=== PATIENT | female | born 1965 | race Caucasian/White ===

== ENCOUNTER → 2016-05-22 | Outpatient (CLI) | payer OTHER ==
[2016-05-22 10:22] LABS: ALT 51 U/L (9-52); AST 58 U/L (14-36); Alkaline Phosphatase 77 U/L (38-126); Anion Gap 12 mmol/L; Blood Urea Nitrogen 16 mg/dL (7-17); Calcium 9.2 mg/dL (8.4-10.2); Carbon Dioxide 26 mmol/L (22-30); Chloride 105 mmol/L (98-107); Cholesterol 157 mg/dL (<200); Glucose 122 mg/dL (74-99); HDL Cholesterol 52 mg/dL (40-60); Non-African American GFR(MDRD) >60 (>60 ml/min/1.73 sqM); Potassium 4.7 mmol/L (3.5-5.1); Sodium 143 mmol/L (137-145); Total Bilirubin 0.4 mg/dL (0.2-1.3); Total Protein 7.1 g/dL (6.3-8.2); Triglycerides 477 mg/dL (<150)
[2016-05-22 12:53] LABS: Hemoglobin A1C 6.7 % (4.2-6.1)
== END ==
LOC: LABWHC1 09:04
PROVIDERS: ATTEND Internal Medicine
DX: E78.5 Hyperlipidemia, unspecified (principal); E11.9 Type 2 diabetes mellitus without complications; I10 Essential (primary) hypertension
CPT/HCPCS: 36415; 80053; 80061; 83036

== ENCOUNTER → 2017-08-13 | Outpatient (CLI) | payer OTHER ==
[2017-08-13 10:32] LABS: HCT 42.9 % (34.0-46.0); HGB 14.2 gm/dL (11.4-16.0); MCH 31.8 pg (25.0-35.0); MCHC 33.1 g/dL (31.0-37.0); Mean Platelet Volume 6.5; Platelet Count 247 k/uL (150-450); RBC 4.47 m/uL (3.80-5.40); RDW 13.1 % (11.5-15.5); WBC 7.6 k/uL (3.8-10.6)
[2017-08-13 10:49] LABS: ALT 43 U/L (9-52); AST 44 U/L (14-36); Albumin 4.6 g/dL (3.5-5.0); Alkaline Phosphatase 76 U/L (38-126); Blood Urea Nitrogen 15 mg/dL (7-17); Calcium 9.6 mg/dL (8.4-10.2); Chloride 103 mmol/L (98-107); Cholesterol 254 mg/dL (<200); Glucose 127 mg/dL (74-99); HDL Cholesterol 48 mg/dL (40-60); Potassium 4.9 mmol/L (3.5-5.1); Sodium 142 mmol/L (137-145); Total Bilirubin 0.3 mg/dL (0.2-1.3); Total Protein 7.2 g/dL (6.3-8.2)
[2017-08-13 11:03] LABS: Anion Gap 13 mmol/L; Carbon Dioxide 26 mmol/L (22-30)
[2017-08-13 11:16] LABS: Triglycerides 962 mg/dL (<150)
[2017-08-13 18:49] LABS: Hemoglobin A1C 6.9 % (4.0-6.0)
== END | disposition home or self-care (01) ==
LOC: LABWHC1 09:44
PROVIDERS: ATTEND Internal Medicine
DX: E11.9 Type 2 diabetes mellitus without complications (principal); E78.5 Hyperlipidemia, unspecified; E03.9 Hypothyroidism, unspecified
CPT/HCPCS: 36415; 80053; 80061; 83036; 84443; 85027

== ENCOUNTER → 2019-03-21 | Outpatient (CLI) | payer OTHER ==
[2019-03-21 07:34] LABS: HCT 42.1 % (34.0-46.0); HGB 14.4 gm/dL (11.4-16.0); MCH 34.4 pg (25.0-35.0); MCHC 34.3 g/dL (31.0-37.0); MCV 100.1 fL (80.0-100.0); Mean Platelet Volume 7.2; Platelet Count 277 k/uL (150-450); RDW 12.5 % (11.5-15.5); WBC 6.7 k/uL (3.8-10.6)
[2019-03-21 11:30] LABS: Hemoglobin A1C 7.2 % (4.0-6.0)
[2019-03-21 11:38] LABS: African American GFR (CKD) 95.5 (60.0-200.0); Albumin 4.8 g/dL (3.80-4.90); Albumin/Globulin Ratio 2.53 (1.60-3.17); Anion Gap 11.6 mmol/L (4.00-12.00); BUN/Creat Ratio 18.75 Ratio (12.00-20.00); Carbon Dioxide 25.4 mmol/L (21.6-31.8); Chol/HDL Ratio 4.71; Globulin 1.9 g/dL (1.6-3.3); Non-African American GFR(CKD) 82.4 (60.0-200.0); Total Bilirubin 0.2 mg/dL (0.2-1.2); Total Protein 6.7 g/dL (6.2-8.2)
== END | disposition home or self-care (01) ==
LOC: LABWHC1 06:52
PROVIDERS: ATTEND Internal Medicine
DX: E11.9 Type 2 diabetes mellitus without complications (principal); I10 Essential (primary) hypertension; E78.5 Hyperlipidemia, unspecified
CPT/HCPCS: 36415; 80053; 80061; 83036; 83721; 85027

== ENCOUNTER → 2020-12-15 | Outpatient (CLI) | payer BC, OTHER ==
--- NOTE | 2020-12-15 08:30 | US ---
EXAMINATION TYPE: US abdomen complete DATE OF EXAM: 12/15/2020 COMPARISON: NONE CLINICAL HISTORY: R79.89 Elevated liver function. EXAM MEASUREMENTS: Liver Length: 13.4 cm Gallbladder Wall: 0.3 cm CBD: 0.4 cm, there is a focal bulbous area measuring 8 to 9 mm Spleen: 10.6 cm Right Kidney: 10.4 x 3.9 x 4.8cm Left Kidney: 11.5 x 5.1 x 5.1 cm Pancreas: slightly obscure by bowel gas Liver: mildly echogenic Gallbladder: wall appears thickened, although gallbladder is contracted Evidence for sonographic Howard's sign: no CBD: dilated Spleen: wnl Right Kidney: wnl Left Kidney: wnl Upper IVC: wnl Abd Aorta: wnl The liver is homogenous. The intrahepatic portion of the IVC and proximal abdominal aorta are within normal limits. There is no evidence of cholelithiasis. Common bile duct as described. The visuali zed portions of the pancreas are homogenous. The spleen is unremarkable. Kidneys are symmetric and free of hydronephrosis, cortical medullary differentiation is maintained. No renal lesions are seen. IMPRESSION: Correlate for possible hepatic steatosis, hepatocellular disease. There is a small focal ectatic prominence to the common bile duct, indeterminate. Additional findings above.
== END | disposition home or self-care (01) ==
LOC: RADUSWWP 07:00
PROVIDERS: ATTEND Internal Medicine
DX: K76.89 Other specified diseases of liver (principal); K83.8 Other specified diseases of biliary tract
CPT/HCPCS: 76700

== ENCOUNTER → 2020-12-23 | Outpatient (CLI) | payer BC ==
--- NOTE | 2020-12-24 10:37 | MM ---
Reason for exam: screening (asymptomatic). Last mammogram was performed 3 years and 11 months ago. History: Patient is postmenopausal. Taking estrogen for 15 years beginning at age 40. Physical Findings: A clinical breast exam by your physician is recommended on an annual basis and results should be correlated with mammographic findings. MG 3D Screening Mammo W/Cad Bilateral CC and MLO view(s) were taken. Prior study comparison: February 04, 2017, bilateral MG screening mammo w CAD. December 27, 2014, bilateral MG screening mammo w CAD. The breast tissue is extremely dense which could obscure a lesion on mammography. Finding #1: There is a 1 mm equal density (isodense), obscured mass in the axillary tail position of the left breast. Finding #2: There are typically benign calcifications in the left breast. ASSESSMENT: Incomplete: need additional imaging evaluation, BI-RAD 0 RECOMMENDATION: Special view mammogram of the left breast. If lesion persists on supplemental views, image directed ultrasound is recommended. [facility] will attempt to contact patient to return for supplemental views and ultrasound if indicated.
== END | disposition home or self-care (01) ==
LOC: RADMAMWWP 07:02
PROVIDERS: ATTEND Internal Medicine
DX: Z12.31 Encounter for screening mammogram for malignant neoplasm of breast (principal)
CPT/HCPCS: 77063; 77067

== ENCOUNTER 2020-12-27 10:07 | Emergency (ER) | payer BC ==
[2020-12-27 10:51] VITALS: BP 191/84; TEMP 97.7
--- NOTE | 2020-12-27 11:18 | XR ---
EXAMINATION TYPE: XR ankle complete LT, XR foot complete LT DATE OF EXAM: 12/27/2020 COMPARISON: NONE HISTORY: Pain TECHNIQUE: 3 views of the left ankle are submitted for evaluation. FINDINGS: There is no evidence for fracture or dislocation. Ankle mortise is intact. Soft tissues are within normal limits. Small plantar dorsal calcaneal spurs identified. IMPRESSION: 1. No evidence for acute fracture. EXAMINATION TYPE: XR ankle complete LT, XR foot complete LT DATE OF EXAM: 12/27/2020 CLINICAL HISTORY: pain TECHNIQUE: Frontal, lateral and oblique images of the left foot are obtained. COMPARISON: None. FINDINGS: There is no acute fracture/dislocation evident. The joint spaces appear within normal oropeza its. The overlying soft tissue appears unremarkable. IMPRESSION: There is no acute fracture or dislocation. ICD 10 NO FRACTURE, INITIAL EVALUATION
--- NOTE | 2020-12-27 11:58 | US ---
EXAMINATION TYPE: US venous doppler duplex LE LT DATE OF EXAM: 12/27/2020 11:48 AM COMPARISON: NONE CLINICAL HISTORY: pain. SIDE PERFORMED: Left TECHNIQUE: The lower extremity deep venous system is examined utilizing real time linear array sonog chelsey with graded compression, doppler sonography and color-flow sonography. VESSELS IMAGED: Common Femoral Vein Deep Femoral Vein Greater Saphenous Vein * Femoral Vein Popliteal Vein Small Saphenous Vein * Proximal Calf Veins (* superficial vessels) Left Leg: Negative for DVT At patients left posterior calf at area of pain is a focal area of increased echogenicity with a surr ounding hypoechoic area in what appears to be the muscle. IMPRESSION: No DVT identified. Correlate for possible intramuscular hematoma or tear.
--- NOTE | 2020-12-27 12:08 | ED ---
Lower Extremity Injury HPI - General Chief Complaint: Extremity Injury, Lower Stated Complaint: lt ankle/leg pain Time Seen by Provider: 12/27/20 10:54 Source: patient, RN notes reviewed Mode of arrival: ambulatory Limitations: no limitations - History of Present Illness Initial Comments: This a 55-year-old female presents emergency from chief complaint left leg, ankle foot pain. Patient states she injured 2 weeks ago when she was walking her dog. Patient states her is extensive bruising and swelling there continues to be some bruising. She states she started having more lower leg pain, calf pain side and foot and ankle pain. She had no prior evaluation including x- rays. Patient's concern is possible blood clot. No chest pain or shortness breath no history DVT. - Related Data Allergies Allergy/AdvReac Type Severity Reaction Status Date / Time codeine AdvReac Nausea & Verified 12/27/20 10:51 Vomiting Review of Systems ROS Statement: Those systems with pertinent positive or pertinent negative responses have been documented in the HPI. ROS Other: All systems not noted in ROS Statement are negative. Past Medical History Past Medical History: Diabetes Mellitus, Hyperlipidemia, Hypertension History of Any Multi-Drug Resistant Organisms: None Reported Past Surgical History: Hysterectomy Smoking Status: Never smoker Past Alcohol Use History: None Reported Past Drug Use History: None Reported General Exam Limitations: no limitations General appearance: alert, in no apparent distress Head exam: Present: atraumatic, normocephalic, normal inspection Respiratory exam: Present: normal lung sounds bilaterally. Absent: respiratory distress, wheezes, rales, rhonchi, stridor Cardiovascular Exam: Present: regular rate, normal rhythm, normal heart sounds. Absent: systolic murmur, diastolic murmur, rubs, gallop, clicks Extremities exam: Present: other (Left foot there is distal bruising along the MTP region, there is moderate tonsillar metatarsal region along with malleolar tenderness. Neurovascular intact with cap refill less than 2 seconds, there is swelling of the left leg, tenderness or calf region.) Neurological exam: Present: reflexes normal. Absent: motor sensory deficit Skin exam: Present: warm, dry, intact, normal color. Absent: rash Course Vital Signs 12/27/20 12/27/20 10:48 12:26 Temperature 97.7 F Pulse Rate 96 89 Respiratory 18 16 Rate Blood Pressure 191/84 O2 Sat by Pulse 99 98 Oximetry Medical Decision Making - Medical Decision Making X-rays are unremarkable. Ultrasound shows possible hematoma versus muscular injury, tear. Patient will follow-up with orthopedics return parameters were discussed. Disposition Clinical Impression: Hematoma of left lower extremity, Muscle tear Disposition: HOME SELF-CARE Condition: Stable Instructions (If sedation given, give patient instructions): Hematoma (ED) Additional Instructions: Please return to the Emergency Department if symptoms worsen or any other concerns. Is patient prescribed a controlled substance at d/c from ED?: No Referrals: Kyle Mcginnis MD [Primary Care Provider] - 1-2 days Donald Helm MD [Medical Doctor] - 1-2 days Time of Disposition: 12:08
[2020-12-27 12:27] VITALS: PULSE 89; RESP 16
== END 2020-12-27 12:27 | disposition home or self-care (01) ==
LOC: EC 10:07
DX: S80.12XA Contusion of left lower leg, initial encounter (principal); I10 Essential (primary) hypertension; E78.5 Hyperlipidemia, unspecified; E11.9 Type 2 diabetes mellitus without complications; Z90.710 Acquired absence of both cervix and uterus; Z88.5 Allergy status to narcotic agent; X58.XXXA Exposure to other specified factors, initial encounter
CPT/HCPCS: 99284

== ENCOUNTER → 2020-12-31 | Outpatient (CLI) | payer BC ==
--- NOTE | 2020-12-31 08:40 | MM ---
Reason for exam: additional evaluation requested from abnormal screening. Last mammogram was performed less than 1 month ago. History: Patient is postmenopausal. Taking estrogen for 15 years beginning at age 40. Physical Findings: Nurse did not find any significant physical abnormalities on exam. MG 3D Work Up W/Cad LT Spot compression MLO, spot compression XCCL, XCCL, and ML view(s) were taken of the left breast. Prior study comparison: December 23, 2020, bilateral MG 3d screening mammo w/cad. February 04, 2017, bilateral MG screening mammo w CAD. Finding: There is a typically benign equal density (isodense), circumscribed round mass located 9 cm from the nipple in the left breast consistent with lymph node. New finding since December 23, 2020 and February 04, 2017. These results were verbally communicated with the patient and result sheet given to the patient on 12/31/20. ASSESSMENT: Incomplete: need additional imaging evaluation, BI-RAD 0 RECOMMENDATION: Ultrasound of the left breast.
--- NOTE | 2020-12-31 08:40 | USB ---
Reason for exam: additional evaluation requested from abnormal screening. History: Patient is postmenopausal. Taking estrogen for 15 years beginning at age 40. US Breast Workup Limited LT Left limited breast ultrasound including focal area of concern, retroareolar and axilla demonstrates a 6 x 5mm oval lymph node at the axilla tail. These results were verbally communicated with the patient and result sheet given to the patient on 12/31/20. ASSESSMENT: Benign, BI-RAD 2 RECOMMENDATION: Return to routine screening mammogram schedule for both breasts.
== END | disposition home or self-care (01) ==
LOC: RADMAMWWP 07:05
PROVIDERS: ATTEND Internal Medicine
DX: N63.20 Unspecified lump in the left breast, unspecified quadrant (principal)
CPT/HCPCS: 77061; 77065

== ENCOUNTER → 2021-04-10 | Outpatient (CLI) | payer BC | END | disposition home or self-care (01) | LOC: LABPAT 11:47 | PROVIDERS: ATTEND Surgery Plastic and Reconstructive Surgery | DX: Z20.822 Contact with and (suspected) exposure to COVID-19 (principal) | CPT/HCPCS: U0003; C9803; U0005 ==

== ENCOUNTER 2021-04-15 06:43 | Day surgery (SDC) | payer BC ==
[2021-04-13 12:59] VITALS: BMI 20.3
[~2021-04-15 06:43] MED LIST: LACTATED RINGERS 1,000 ML IV SCH; LIDOCAINE 1% (10MG/ML) FOR IV START INTRADERMA PRN
[2021-04-15 07:18] VITALS: TEMP 98.2
[2021-04-15 07:24] LABS: Glucose,Whole Blood 162 mg/dL (75-99)
[2021-04-15] MEDS ORDERED: PROPOFOL 10 MG/ML 20 ML VIAL IV ONE (07:39)
--- NOTE | 2021-04-15 07:41 | P.GSHP ---
History of Present Illness H&P Date: 04/15/21 CHIEF COMPLAINT: Colon screen HISTORY OF PRESENT ILLNESS: The patient is a 56-year-old female who presents for colon screen. Lower endoscopy was offered for further evaluation and management. PAST MEDICAL HISTORY: Please see list. PAST SURGICAL HISTORY: Please see list. MEDICATIONS: Please see list. ALLERGIES: Please see list. SOCIAL HISTORY: No illicit drug use FAMILY HISTORY: No reports of Crohn disease or ulcerative colitis. REVIEW OF ORGAN SYSTEMS: CONSTITUTIONAL: No reports of fevers or chills. PHYSICAL EXAM: VITAL SIGNS: Stable GENERAL: Well-developed pleasant in no acute distress. HEENT: No scleral icterus. Extraocular movements grossly intact. Moist buccal mucosa. NECK: Supple without lymphadenopathy. CHEST: Unlabored respirations. Equal bilateral excursions. CARDIOVASCULAR: Regular rate and rhythm. Distal 2+ pulses. ABDOMEN: Soft, nontender, nondistended. MUSCULOSKELETAL: No clubbing, cyanosis, or edema. ASSESSMENT: 1. Colon screen. PLAN: 1. Recommend proceeding with a lower endoscopy Past Medical History Past Medical History: Diabetes Mellitus, Hyperlipidemia, Hypertension History of Any Multi-Drug Resistant Organisms: None Reported Past Surgical History: Hysterectomy Past Anesthesia/Blood Transfusion Reactions: No Reported Reaction Past Psychological History: No Psychological Hx Reported Smoking Status: Former smoker Past Alcohol Use History: Daily Additional Past Alcohol Use History / Comment(s): SMOKED APPROX 30 YEARS. DRINKS 1 GLASS RED WINE DAILY Past Drug Use History: None Reported Medications and Allergies Home Medications Medication Instructions Recorded Confirmed Type Atorvastatin [Lipitor] 20 mg PO HS 04/13/21 04/15/21 History Estradiol [Climara 0.075 MG] 0.5 patch TRANSDERM MOTH 04/13/21 04/15/21 History Icosapent Ethyl [Vascepa] 2 cap PO DAILY 04/13/21 04/15/21 History Pioglitazone [Actos] 15 mg PO HS 04/13/21 04/15/21 History amLODIPine [Norvasc] 10 mg PO AC-SUPPER 04/13/21 04/15/21 History Allergies Allergy/AdvReac Type Severity Reaction Status Date / Time codeine AdvReac Nausea & Verified 04/15/21 07:08 Vomiting Surgical - Exam Vital Signs Temp Pulse Resp BP Pulse Ox 98.2 F 83 18 187/94 97 04/15/21 07:11 04/15/21 07:11 04/15/21 07:11 04/15/21 07:11 04/15/21 07:11 Results - Labs Abnormal Lab Results - Last 24 Hours (Table) 04/15/21 Range/Units 07:20 POC Glucose (mg/dL) 162 H (75-99) mg/dL
--- NOTE | 2021-04-15 08:18 | P.PCN ---
Date of Procedure: 04/15/21 Description of Procedure: PREOPERATIVE DIAGNOSIS: Colonoscopy screening. Diabetes type 2, [id number], hemoglobin A1c 6.7% (11/2020) Hypertensive heart disease Former tobacco user BMI, normal POSTOPERATIVE DIAGNOSIS: Colonoscopy screening OPERATION: Colonoscopy to the cecum, ileocecal valve and appendiceal orifice. SURGEON: Shira Frankel MD. ANESTHESIA: MAC. INDICATIONS: The patient is a 56-year-old female who presents for her first colonoscopy screening. She denies family history of colon cancer. No blood in stools. Benefits and risks were described and informed consent was obtained. DESCRIPTION OF PROCEDURE: The patient had undergone Sutab prep. The patient had been brought into the operating room and laid in the left lateral decubitus position. After adequate intravenous sedation, the rectum was examined with 2% lidocaine jelly. No external hemorrhoids were encountered. The rectal tone was within normal limits. No lesions were palpated in the rectal vault. A pediatric Olympus colonoscope was advanced until the cecum, ileocecal valve and appendiceal orifice were teresa priscila viewed. The prep was excellent. No scattered diverticulosis was encountered. No colonic polyps were found. No evidence of focal colitis was found. Retroflexion of the scope demonstrated grade 1 internal hemorrhoids without active bleeding or inflammation. The colon was desufflated. The patient had tolerated the procedure well. Withdrawal time was over 6 minutes. FINDINGS: Aronchick preparation quality scale 1 (1-5) Internal hemorrhoids, grade 1 No external prolapsed hemorrhoids. No arteriovenous malformations. No adenomatous polyps. No focal colitis. RECOMMENDATIONS: Lower endoscopy in 10 years2031 Plan - Discharge Summary New Discharge Prescriptions: Continue amLODIPine [Norvasc] 10 mg PO AC-SUPPER Estradiol [Climara 0.075 MG] 0.5 patch TRANSDERM MOTH Icosapent Ethyl [Vascepa] 2 cap PO DAILY Pioglitazone [Actos] 15 mg PO HS Atorvastatin [Lipitor] 20 mg PO HS Discharge Medication List Atorvastatin [Lipitor] 20 mg PO HS 04/13/21 [History] Estradiol [Climara 0.075 MG] 0.5 patch TRANSDERM MOTH 04/13/21 [History] Icosapent Ethyl [Vascepa] 2 cap PO DAILY 04/13/21 [History] Pioglitazone [Actos] 15 mg PO HS 04/13/21 [History] amLODIPine [Norvasc] 10 mg PO AC-SUPPER 04/13/21 [History] Follow up Appointment(s)/Referral(s): Shira Frankel MD [STAFF PHYSICIAN] - As Needed Patient Instructions/Handouts: *Surgery [facility] - (Anesthesia) Endoscopy Discharge Instructions, Colonoscopy (GEN) Activity/Diet/Wound Care/Special Instructions: Repeat colonoscopy 10 years, 2031 Discharge Disposition: HOME SELF-CARE
[2021-04-15 08:31] VITALS: RESP 16
[2021-04-15] MEDS ORDERED: hydrALAZINE HCL 20 MG/ML 1 ML VIAL ONE (08:46)
[2021-04-15] MEDS ORDERED: hydrALAZINE HCL 20 MG/ML 1 ML VIAL IVP ONE (08:50)
[2021-04-15 09:04] VITALS: BP 155/73; PULSE 72
== END 2021-04-15 09:19 | disposition home or self-care (01) ==
LOC: ORWHC2ENDO 06:43
PROVIDERS: ATTEND Surgery Plastic and Reconstructive Surgery
DX: Z12.11 Encounter for screening for malignant neoplasm of colon (principal); K64.8 Other hemorrhoids
CPT/HCPCS: J0360; J2704; G0121; 45378

== ENCOUNTER → 2024-03-14 | Outpatient (CLI) | payer BC ==
--- NOTE | 2024-03-14 12:52 | MM ---
Reason for Exam: Screening (asymptomatic). Last mammogram was performed 1 year(s) and 4 month(s) ago. Patient History: Menarche at age 12. First Full-Term at age 23. Left ovary removed at age 39. Right ovary removed at age 38. Hysterectomy at age 38. Postmenopausal. Patient has history of breast feeding. Currently using Estrogen, starting at age 40. Risk Values: Melody 5 year model risk: 1.5%. NCI Lifetime model risk: 7.2%. Prior Study Comparison: 12/23/2020 Bilateral Screening Mammogram, [facility]. 12/31/2020 Left Diagnostic Mammogram, [facility]. 11/30/2022 Bilateral MG 3D screening mammo w/cad, [facility]. Tissue Density: The breasts are heterogeneously dense, which may obscure small masses. Findings: Analyzed By CAD. Right breast: There is no suspicious group of microcalcifications or new suspicious mass. Left breast: There is no suspicious group of microcalcifications or new suspicious mass. Overall Assessment: Negative, BI-RAD 1 Management: Screening Mammogram of both breasts in [address] [facility] will attempt to contact patient to return for supplemental views and ultrasound if indicated. Patient should continue monthly self-breast exams. A clinical breast exam by your physician is recommended on an annual basis. This exam should not preclude additional follow-up of suspicious palpable abnormalities. Note on Melody scores and lifetime risk: 1. A Melody score greater than 3% is considered moderate risk. If this is the case, consider specialist referral to assess eligibility for a risk reducing agent. 2. If overall lifetime risk for the development of breast cancer is 20% or higher, the patient may qualify for future screening with alternating mammogram and breast MRI. [facility], , 03/14/2024 12:49 PM. Electronically signed and approved by: Thaddeus Yi DO
--- NOTE | 2024-03-14 15:16 | BD ---
EXAMINATION TYPE: Axial Bone Density DATE OF EXAM: 03/14/2024 CLINICAL HISTORY: 59 years old Female. ICD-10 CODE: Z78.0 Postmenopausal , Additional History: Height: 5 ft 3 in Weight: 121 FRAX RISK QUESTIONS: Alcohol (3 or more units per day): no Family History (Parent hip fracture): yes Glucocorticoids (More than 3mos): no (Ex: prednisone, prednisolone, methylprednisolone, dexamethasone, and hydrocortisone). History of Fracture in Adulthood: no Secondary Osteoporosis: 1. Type 1 Diabetes: type 2 2. Hyperthyroidism: no 3. Menopause before 45: yes 4. Malnutrition: no 5. Chronic liver disease: no Rheumatoid Arthritis: no Current Tobacco Use: no RISK FACTORS HISTORY OF: Surgery to Spine/Hip(right/left)/Wrist (right/left): no MEDICATIONS: Thyroid Medications: none Osteoporosis Medications: none EXAM MEASUREMENTS: Bone mineral densitometry was performed using the [employer] System. Bone mineral density as measured about the Lumbar spine is: ----- L1-L4(G/cm2): 1.549 T Score Values are as follows: ----- L1: 2.8 ----- L2: 3.6 ----- L3: 3.7 ----- L4: 2.2 ----- L1-L4: 3.1 Z Score Values are as follows: ----- L1: 4.4 ----- L2: 5.2 ----- L3: 5.3 ----- L4: 3.8 ----- L1-L4: 4.7 baseline Bone mineral density about the R hip (g/cm2): 0.755 Bone mineral density about the L hip (g/cm2): 0.794 T Score values are as follows: -----R Neck: -2.0 -----L Neck: -1.8 -----R Total: -1.1 -----L Total: -1.1 Z Score values are as follows: -----R Neck: -0.5 -----L Neck: -0.3 -----R Total: 0.1 -----L Total: 0.1 baseline FRAX%s: The graph provided illustrates a 17.5 % chance for a major osteoporotic fx and a 1.4 % chance for the hips probability for fx in 10 years time. IMPRESSION: Osteopenia (T Score between -2.5 and -1). There is slightly increased risk of fracture and the patient may be considered for treatment. Re-Screen 2-5 years. NOTE: T-SCORE=SD OF THE YOUNG ADULT MEAN. [facility], , 03/14/2024 3:13 PM
== END | disposition home or self-care (01) ==
LOC: RADMAMWWP 12:10
PROVIDERS: ATTEND Family Medicine
DX: Z12.31 Encounter for screening mammogram for malignant neoplasm of breast (principal); R92.333 Mammographic heterogeneous density, bilateral breasts; M85.89 Other specified disorders of bone density and structure, multiple sites; Z78.0 Asymptomatic menopausal state; Z90.721 Acquired absence of ovaries, unilateral; Z74.9 Problem related to care provider dependency, unspecified; E11.9 Type 2 diabetes mellitus without complications
CPT/HCPCS: 77063; 77067; 77080